=== PATIENT | male | born 1940 | race Caucasian/White ===

== ENCOUNTER 2017-11-20 15:35 | Emergency (ER) | payer MEDICARE, OTHER, SELFPAY ==
[2017-11-20 15:43] VITALS: BP 156/86; PULSE 101; RESP 20; TEMP 39.3; O2SAT 96
[2017-11-20] MEDS: SODIUM CHLORIDE 0.9% 1,000 ML 500 ML IV (16:09)
--- NOTE | 2017-11-20 16:09 | ED_ITS ---
HPI - Fever General Chief Complaint: Fever Stated Complaint: FEVER,5 DAYS SINCE LAST BM,THINKS BOWEL BLOCKAGE Time Seen by Provider: 11/20/17 16:08 Source: patient Mode of arrival: ambulatory Limitations: no limitations History of Present Illness HPI Narrative: 77-year-old male Ali history of hypertension here for evaluation of a couple days of fever and productive cough and malaise and abdominal pain. Patient states that he feels exactly the way he did when he was diagnosed with a ?bowel blockage? back in 2016. He states that he took Tylenol couple times over the past couple days which did not help any of his symptoms. He denies any shortness of breath or chest pain. Denies any urinary symptoms. States that he has had chronic sinusitis and chronic cough for years. He has seen ear nose and throat and has tried ?all of the medicines ?and has not had any improvement. No recent travel. Related Data Home Medications Medication Instructions Recorded Confirmed MULTIVITAMIN (Multivitamin 0 PO * [place] DOSE/FREQUENCY #0 08/30/06 -) aspirin 81 mg PO QDAY #0 08/30/06 amlodipine-olmesartan [Jace] PO QDAY #0 07/23/16 dexlansoprazole [Dexilant] PO BID #0 07/23/16 nebivolol [Bystolic] 60 mg PO BID #0 07/23/16 Previous Rx's Medication Instructions Recorded levofloxacin [Levaquin] 750 mg PO Q24H 5 Days #5 tab 11/20/17 Allergies Allergy/AdvReac Type Severity Reaction Status Date / Time Sulfa (Sulfonamide Allergy Unknown Verified 11/20/17 15:50 Antibiotics) [SULFA (SULFONAMIDE ANTIBIOTICS)] Review of Systems Constitutional Denies chills, Reports fatigue, Reports fever(s) and Denies headache(s) ENT Ears, Nose, Mouth, and Throat: Denies headache(s) Comments: Post nasal drip Cardiovascular Denies diaphoresis and Denies syncope Respiratory Denies chest congestion, Reports cough, Denies excessive phlegm production and Denies pain with cough Gastrointestinal Gastrointestinal: Denies diarrhea, Denies nausea and Denies vomiting Genitourinary Denies dysuria and Reports urinary frequency Integumentary/Breasts Denies lesions, Denies rash and Denies wounds Neurologic Denies syncope and Denies headache(s) Endocrine Reports fatigue Hematologic/Lymphatic Denies easy bleeding and Denies easy bruising PFSH Medical History HTN (hypertension) (Acute) Social History Smoking Status: Former smoker Exam Initial Vital Signs Initial Vital Signs: Vital Signs Temperature 102.7 F H 11/20/17 15:43 Pulse Rate 101 H 11/20/17 15:43 Respiratory Rate 20 11/20/17 15:43 Blood Pressure 156/86 H 11/20/17 15:43 Pulse Oximetry 96 11/20/17 15:43 Const General: cooperative, healthy appearing, comfortable, well developed, well groomed and No acute distress Orientation: alert, awake and oriented x3 Resp Effort & Inspection: normal respiratory effort Auscultation: clear to auscultation bilaterally, no crackles, no egophony, no rales and no rhonchi Cardio Rate: tachycardic Rhythm: regular rhythm Pulses: radial pulses present GI Inspection: non-distended Palpation: soft and tender (Epigastric) Auscultation: normal bowel sounds Skin Lesions: no lesions Rashes: no rashes Neuro General: alert, awake and oriented x3 Extrem General: normal to inspection Course Orders Ordered: ED Orders 11/20/17 16:00 Complete Blood Count AUTO DIFF Stat Comprehensive Metabolic Panel Stat Lactate (Lactic Acid) Stat Lipase Stat Partial Thromboplastin Time Stat Prothrombin Time INR Stat 11/20/17 16:03 Urinalysis and Microscopic Stat EKG-12 Lead Stat 11/20/17 16:17 XR chest 2V Stat 11/20/17 16:19 CT abdomen pelvis w con Stat 11/20/17 16:25 Blood Culture Stat Discontinued Medications Acetaminophen (Tylenol) 650 mg PO NOW ONE Stop: 11/20/17 16:10 Last Admin: 11/20/17 16:14 Dose: 650 mg Sodium Chloride (Normal Saline 0.9%) 1,000 mls @ 500 mls/hr IV BOLUS ONE Stop: 11/20/17 18:02 Last Infusion: 11/20/17 17:05 Dose: 0 mls/hr Admin: 11/20/17 16:09 Dose: 500 mls/hr Ibuprofen (Advil) 800 mg PO NOW ONE Stop: 11/20/17 16:11 Last Admin: 11/20/17 17:06 Dose: Not Given Vital Signs - 8 hr 11/20/17 15:43 11/20/17 16:42 11/20/17 17:50 Temperature 102.7 F H 102.7 F H 100.8 F H Pulse Rate 101 H 99 H Respiratory Rate 20 16 Blood Pressure 156/86 H Blood Pressure [Left Arm] 152/82 H Pulse Oximetry 96 96 MDM - Fever Lab Data Attestation: I reviewed the patient's lab results. Result diagrams: 11/20/17 16:00 11/20/17 16:00 Lab Results 11/20/17 11/20/17 11/20/17 Range/Units 16:00 16:00 16:00 WBC 19.0 H (4.5-11.0) X10^3/uL RBC 4.58 (4.5-5.9) X10^6/uL Hgb 13.2 L (13.5-17.5) g/dL Hct 39.7 L (41-53) % MCV 86.7 (80-100) fL MCH 28.8 (26-34) PG MCHC 33.2 (30-36) % RDW 15.6 H (11.6-14.8) % Plt Count 341 (150-400) X10^3/uL Neut % (Auto) 81.3 H (50-75) % Lymph % (Auto) 6.7 L (25-40) % Ector % (Auto) 11.5 (3-14) % Eos % (Auto) 0.1 L (2-4) % Baso % (Auto) 0.4 (0-2) % Neut # (Auto) 53800 H (8036-5876) /uL PT 14.5 H (10.1-12.7) SECONDS INR 1.3 (0.9-1.3) APTT 32 (26.4-36.2) SECONDS Sodium 135 L (137-145) mmol/L Potassium 4.5 (3.4-5.1) mmol/L Chloride 92 L (98-107) mmol/L Carbon Dioxide 26 (22-32) mmol/L BUN 15 (9-20) mg/dL Creatinine 1.10 (0.66-1.25) mg/dL Estimated GFR > 60.0 (>60) mL/min BUN/Creatinine Ratio 13.6 (6-22) Glucose 122 H (80-110) mg/dL Lactate (0.7-2.1) mmol/L Calcium 9.5 (8.4-10.2) mg/dL Total Bilirubin 0.9 (0.2-1.3) mg/dL AST 25 (17-59) IU/L ALT 21 (21-72) IU/L Alkaline Phosphatase 75 (38-126) U/L Total Protein 8.2 (6.3-8.2) g/dL Albumin 4.5 (3.5-5.0) g/dL Globulin 3.7 (1.7-4.1) g/dL Albumin/Globulin Ratio 1.2 (1.0-2.8) Lipase 19 L (23-300) U/L 11/20/17 Range/Units 16:00 WBC (4.5-11.0) X10^3/uL RBC (4.5-5.9) X10^6/uL Hgb (13.5-17.5) g/dL Hct (41-53) % MCV (80-100) fL MCH (26-34) PG MCHC (30-36) % RDW (11.6-14.8) % Plt Count (150-400) X10^3/uL Neut % (Auto) (50-75) % Lymph % (Auto) (25-40) % Ector % (Auto) (3-14) % Eos % (Auto) (2-4) % Baso % (Auto) (0-2) % Neut # (Auto) (5647-7776) /uL PT (10.1-12.7) SECONDS INR (0.9-1.3) APTT (26.4-36.2) SECONDS Sodium (137-145) mmol/L Potassium (3.4-5.1) mmol/L Chloride (98-107) mmol/L Carbon Dioxide (22-32) mmol/L BUN (9-20) mg/dL Creatinine (0.66-1.25) mg/dL Estimated GFR (>60) mL/min BUN/Creatinine Ratio (6-22) Glucose (80-110) mg/dL Lactate 1.6 (0.7-2.1) mmol/L Calcium (8.4-10.2) mg/dL Total Bilirubin (0.2-1.3) mg/dL AST (17-59) IU/L ALT (21-72) IU/L Alkaline Phosphatase (38-126) U/L Total Protein (6.3-8.2) g/dL Albumin (3.5-5.0) g/dL Globulin (1.7-4.1) g/dL Albumin/Globulin Ratio (1.0-2.8) Lipase (23-300) U/L Imaging Data Chest x-ray: Radiologist's impression: PROCEDURE: XR CHEST 2V INDICATIONS: Fever and productive cough TECHNIQUE: 2 views of the chest were acquired. COMPARISON: [facility], CHEST 2 VIEW, 12/04/2009, 9:17. [facility], CHEST 2 VIEW, 04/02/2008, 8:29. FINDINGS: Surgical changes and devices: None. Lungs and pleura: Right basilar infiltrate suspicious for pneumonia. No pleural effusions or pneumothorax. Mediastinum: Mediastinal contours are normal. Heart size is normal. Bones and chest wall: No suspicious bony abnormalities. Soft tissues appear unremarkable. IMPRESSION: Right basilar pneumonia. Dictated by: Marcelle Cornell M.D. on 11/20/2017 at 17:27 CT scan - abdomen: Radiologist's impression: PROCEDURE: CT ABDOMEN PELVIS W CON INDICATIONS: Upper abdominal pain the history of bowel obstruction. TECHNIQUE: After the administration of intravenous contrast, 5 mm thick sections acquired from the diaphragm to the symphysis. 5 mm coronal and sagittal reformats were acquired. For radiation dose reduction, the following was used: automated exposure control, adjustment of mA and/or kV according to patient size. COMPARISON: [facility], MR, ABDOMEN WITH AND WITHOUT CONTR, 06/12/2010, 10: 53. [facility], CT, ABDOMEN/PELVIS WITH CONTRAST, 06/05/2010, 8:35. [facility], CT, ABDOMEN WITH CONTRAST, 03/23/2013, 9:13. [facility], CT, ABDOMEN WITHOUT CONTRAST, 01/25/2014, 10:54. [facility], CT, PELVIS WITHOUT CONTRAST, 06/12/2015, 10: 18. FINDINGS: Image quality: Excellent. ABDOMEN: Lung bases: Right lower infiltrates consistent with pneumonia. A couple of nodular densities are noted in the right middle lobe measuring 8 mm and 7 mm, demonstrating groundglass halo. Heart size is normal. Tiny hiatal hernia. Solid organs: There is diffuse hepatic fatty infiltration. Multiple low density nodules are seen in liver, unchanged from the last exam, most likely hepatic cysts or hemangiomas. Liver is normal in size and enhancement. Gallbladder is unremarkable. Biliary system is non dilated. Pancreas enhances normally. Spleen is normal in size and enhancement. No adrenal nodules. Kidneys demonstrate normal size and enhancement, without hydronephrosis. Peritoneum and bowel: Bowel loops demonstrate normal wall thickness and caliber. No free fluid or air. Nodes and vessels: No retroperitoneal or mesenteric adenopathy by size criteria. Aorta and inferior vena cava are normal in size. Miscellaneous: Tiny umbilical hernia is present. PELVIS: Genitourinary: Bladder wall is concentrically thickened. Miscellaneous: No inguinal hernias or adenopathy. Bones: No suspicious bony lesions. No vertebral body compression fractures. IMPRESSION: 1. Concentric thickening of the bladder wall suggests cystitis. Recommend clinical correlation. 2. Right lower lobe infiltrates suspicious for pneumonia. Two right middle lobe nodules demonstrate groundglass halo, suggesting atypical infections such as aspergillosis. Recommend clinical correlation. A neoplastic process is not excluded. A followup chest CT is recommended after adequate treatment. 3. Stable low density nodules in liver, likely benign such as cysts. 4. Hepatic steatosis. 5. Enlarged prostate. Dictated by: Marcelle Cornell M.D. on 11/20/2017 at 17:29 Approved by: Marcelle Cornell M.D. on 11/20/2017 at 17:41 MDM Narrative Medical decision making narrative: Patient is not hypoxic. Not tachypneic. Does have a right lower lobe pneumonia both seen on the chest x-ray and also on the CT scan. No signs of bowel obstructions. Patient only has urinary frequency as a urinary symptom. Will place the patient on Levaquin which should take care of the pneumonia and also any potential cystitis. We did discuss the other findings on his CT scan to include the lung nodules. He was instructed that he needed to follow up with his primary doctor regarding this once the infection is cleared. Patient was unable to produce any sort of sputum sample for us. He denies any recent travel. Acknowledged the other findings from the CT scan and the concern for atypical pneumonia is however and his current presentation will treat the patient with Levaquin to see if this is not improving his symptoms. He was instructed he needs to follow up with his primary doctor. He was given return precautions. He expressed understanding and agreement with plan Discharge Plan Departure Patient Disposition: Home, Self-Care Clinical Impression: Pneumonia, Incidental lung nodule Instructions: DI for Pneumonia -- Adult Activity Restrictions/Additional Instructions: You do need to follow-up with her primary care doctor regarding the findings on the CT scan in the lung nodules that were found. Take the antibiotics as directed. Return to the emergency department for any new symptoms, worsening symptoms, fevers, inability to take her antibiotics, or any other concerning symptoms. Prescriptions: New levofloxacin [Levaquin] 750 mg tablet 750 mg PO Q24H 5 Days Qty: 5 RF: 0 No Action aspirin 81 MG tablet,delayed release (DR/EC) 81 mg PO QDAY Qty: 0 RF: 0 MULTIVITAMIN (Multivitamin -) PO * [place] DOSE/FREQUENCY Qty: 0 RF: 0 nebivolol [Bystolic] 20 MG tablet 60 mg PO BID Qty: 0 RF: 0 amlodipine-olmesartan [Jace] 5-20 mg Tablet PO QDAY Qty: 0 RF: 0 dexlansoprazole [Dexilant] 30 mg Capsule,Biphase Delayed Releas PO BID Qty: 0 RF: 0
[2017-11-20 16:11] LABS: Add Manual Diff / Slide Review NO; Basophils Percent Auto 0.4 % (0-2); Eosinophils Percent Auto 0.1 % (2-4); Hematocrit 39.7 % (41-53); Hemoglobin 13.2 g/dL (13.5-17.5); Lymphocytes Percent Auto 6.7 % (25-40); Mean Corpuscular HGB Conc 33.2 % (30-36); Mean Corpuscular Hemoglobin 28.8 PG (26-34); Mean Corpuscular Volume 86.7 fL (80-100); Monocytes Percent Auto 11.5 % (3-14); Neutrophils Absolute Auto 15400 /uL (3000-5900); Neutrophils Percent Auto 81.3 % (50-75); Platelet Count 341 X10^3/uL (150-400); Red Blood Cell Count 4.58 X10^6/uL (4.5-5.9); Red Cell Distribution Width 15.6 % (11.6-14.8)
[2017-11-20] MEDS: ACETAMINOPHEN 325 MG TABLET 650 MG PO (16:14)
--- NOTE | 2017-11-20 16:17 | DI.RAD.S_ITS ---
PROCEDURE: XR CHEST 2V INDICATIONS: Fever and productive cough TECHNIQUE: 2 views of the chest were acquired. COMPARISON: [facility], CHEST 2 VIEW, 12/04/2009, 9:17. [facility], CHEST 2 VIEW, 04/02/2008, 8:29. FINDINGS: Surgical changes and devices: None. Lungs and pleura: Right basilar infiltrate suspicious for pneumonia. No pleural effusions or pneumothorax. Mediastinum: Mediastinal contours are normal. Heart size is normal. Bones and chest wall: No suspicious bony abnormalities. Soft tissues appear unremarkable. IMPRESSION: Right basilar pneumonia. Dictated by: Marcelle Cornell M.D. on 11/20/2017 at 17:27 Approved by: Marcelle Cornell M.D. on 11/20/2017 at 17:29
--- NOTE | 2017-11-20 16:19 | DI.CT.S_ITS ---
PROCEDURE: CT ABDOMEN PELVIS W CON INDICATIONS: Upper abdominal pain the history of bowel obstruction. TECHNIQUE: After the administration of intravenous contrast, 5 mm thick sections acquired from the diaphragm to the symphysis. 5 mm coronal and sagittal reformats were acquired. For radiation dose reduction, the following was used: automated exposure control, adjustment of mA and/or kV according to patient size. COMPARISON: [facility], MR, ABDOMEN WITH AND WITHOUT CONTR, 06/12/2010, 10:53. [facility], CT, ABDOMEN/PELVIS WITH CONTRAST, 06/05/2010, 8:35. [facility], CT, ABDOMEN WITH CONTRAST, 03/23/2013, 9:13. [facility], CT, ABDOMEN WITHOUT CONTRAST, 01/25/2014, 10:54. [facility], CT, PELVIS WITHOUT CONTRAST, 06/12/2015, 10:18. FINDINGS: Image quality: Excellent. ABDOMEN: Lung bases: Right lower infiltrates consistent with pneumonia. A couple of nodular densities are noted in the right middle lobe measuring 8 mm and 7 mm, demonstrating groundglass halo. Heart size is normal. Tiny hiatal hernia. Solid organs: There is diffuse hepatic fatty infiltration. Multiple low density nodules are seen in liver, unchanged from the last exam, most likely hepatic cysts or hemangiomas. Liver is normal in size and enhancement. Gallbladder is unremarkable. Biliary system is non dilated. Pancreas enhances normally. Spleen is normal in size and enhancement. No adrenal nodules. Kidneys demonstrate normal size and enhancement, without hydronephrosis. Peritoneum and bowel: Bowel loops demonstrate normal wall thickness and caliber. No free fluid or air. Nodes and vessels: No retroperitoneal or mesenteric adenopathy by size criteria. Aorta and inferior vena cava are normal in size. Miscellaneous: Tiny umbilical hernia is present. PELVIS: Genitourinary: Bladder wall is concentrically thickened. Miscellaneous: No inguinal hernias or adenopathy. Bones: No suspicious bony lesions. No vertebral body compression fractures. IMPRESSION: 1. Concentric thickening of the bladder wall suggests cystitis. Recommend clinical correlation. 2. Right lower lobe infiltrates suspicious for pneumonia. Two right middle lobe nodules demonstrate groundglass halo, suggesting atypical infections such as aspergillosis. Recommend clinical correlation. A neoplastic process is not excluded. A followup chest CT is recommended after adequate treatment. 3. Stable low density nodules in liver, likely benign such as cysts. 4. Hepatic steatosis. 5. Enlarged prostate. Dictated by: Marcelle Cornell M.D. on 11/20/2017 at 17:29 Approved by: Marcelle Cornell M.D. on 11/20/2017 at 17:41
[2017-11-20 16:22] LABS: INR 1.3 (0.9-1.3); Prothrombin Time 14.5 SECONDS (10.1-12.7)
[2017-11-20 16:23] LABS: Alanine Aminotransferase 21 IU/L (21-72); Albumin 4.5 g/dL (3.5-5.0); Albumin Globulin Ratio 1.2 (1.0-2.8); Alkaline Phosphatase 75 U/L (38-126); Aspartate Aminotransferase 25 IU/L (17-59); BUN Creatinine Ratio 13.6 (6-22); Bilirubin Total 0.9 mg/dL (0.2-1.3); Blood Urea Nitrogen 15 mg/dL (9-20); Calcium 9.5 mg/dL (8.4-10.2); Carbon Dioxide 26 mmol/L (22-32); Chloride 92 mmol/L (98-107); Estimated Glomerular Filt Rate > 60.0 mL/min (>60); Globulin 3.7 g/dL (1.7-4.1); Glucose 122 mg/dL (80-110); HEMOLYSIS < 15 (0-50); Lipase 19 U/L (23-300); Potassium 4.5 mmol/L (3.4-5.1); Sodium 135 mmol/L (137-145); Total Protein 8.2 g/dL (6.3-8.2)
[2017-11-20 16:24] LABS: Lactate (Lactic Acid) 1.6 mmol/L (0.7-2.1)
[2017-11-20 16:25] LABS: PTT Partial Thromboplastin Tim 32 SECONDS (26.4-36.2)
[2017-11-20 16:42] VITALS: BP 152/82; PULSE 99; RESP 16; TEMP 39.3; O2SAT 96
[2017-11-20 17:50] VITALS: TEMP 38.2
[2017-11-20 18:22] VITALS: BP 124/79; PULSE 86; RESP 18; TEMP 37.4; O2SAT 96
[2017-11-20] MEDS: levoFLOXacin 250 MG TABLET 750 MG PO (18:33)
== END 2017-11-20 18:40 | disposition home or self-care (01) ==
PROVIDERS: Emergency Provider Emergency Medicine; Family Provider Family Medicine; PCP Family Medicine
DX: J18.9 Pneumonia, unspecified organism (principal); R91.1 Solitary pulmonary nodule; Z87.891 Personal history of nicotine dependence
CPT/HCPCS: 36591; 71046; 74177; 80053; 83605; 83690; 85025; 85610; 85730; 87040; 96360; 99283; 99285; Q9967

== ENCOUNTER → 2017-12-05 16:15 | Outpatient (CLI) | payer MEDICARE, OTHER, SELFPAY ==
--- NOTE | 2017-12-05 16:18 | DI.RAD.S_ITS ---
PROCEDURE: XR CHEST 2V INDICATIONS: PNEUMONIA TECHNIQUE: 2 views of the chest were acquired. COMPARISON: [facility], CR, XR CHEST 2V, 11/20/2017, 16:46. FINDINGS: Surgical changes and devices: None. Lungs and pleura: No pleural effusions or pneumothorax. Ill-defined infiltrates in the right middle and lower lobes appear more prominent. Consolidation has developed in the left parahilar region Mediastinum: Mediastinal contours are normal. Heart size is normal. The right pulmonary artery appears prominent. Aortic calcifications and tortuosity. Bones and chest wall: No suspicious bony abnormalities. Soft tissues appear unremarkable. IMPRESSION: Interval worsening of right-sided infiltrates and interval development of left parahilar density. Suggest contrast enhanced CT chest for further evaluation. Dictated by: Reza Buchanan M.D. on 12/05/2017 at 16:31 Approved by: Reza Buchanan M.D. on 12/05/2017 at 16:34
== END ==
PROVIDERS: Family Provider Family Medicine; PCP Family Medicine; Visit Provider Family Medicine
DX: J18.9 Pneumonia, unspecified organism (principal)
CPT/HCPCS: 71046

== ENCOUNTER → 2017-12-08 10:02 | Outpatient (CLI) | payer MEDICARE, OTHER, SELFPAY ==
--- NOTE | 2017-12-08 | DI.CT.S_ITS ---
PROCEDURE: CT CHEST W CON INDICATIONS: Pneumonia on xray TECHNIQUE: After the administration of intravenous contrast, 5 mm thick sections acquired from the pulmonary apices to the posterior costophrenic angles. 7 mm thick coronal and sagittal MIP reformats were acquired. For radiation dose reduction, the following was used: automated exposure control, adjustment of mA and/or kV according to patient size. COMPARISON: [facility], CR, XR CHEST 2V, 11/20/2017, 16:46. [facility], CT, CT ABDOMEN PELVIS W CON, 11/20/2017, 16:57. [facility], CR, XR CHEST 2V, 12/05/2017, 15:56. FINDINGS: Image quality: Excellent. Lungs and pleura: Multiple bilateral areas of consolidation are seen for example in the left upper lobe image 27, and right upper lobe image 32. There also areas of bilateral ill-defined consolidation present within the right middle lobe, lung bases with spiculated ill-defined margins, and nodular appearance in the right middle lobe image 46 measured 1.3 cm. No pleural effusions or pneumothorax. Central and peripheral airways are patent and normal in caliber. Mediastinum: Heart size is normal. Coronary artery calcifications are noted. No pericardial effusion. No mediastinal or hilar adenopathy by size criteria. Thoracic aorta and central pulmonary arteries are normal in size. Esophagus is normal in caliber. No hiatal hernia. Bones and chest wall: No suspicious bony lesions. No vertebral body compression fractures. No axillary or supraclavicular adenopathy by size criteria. Thyroid gland negative. Abdomen: Redemonstration of low attenuation foci within the dome of the liver on image 53 and in the left lobe, image 56, and multiple smaller foci in the inferior tip of the liver. There is hepatic steatosis. IMPRESSION: Interval progression in bilateral lower lobe areas of consolidation as detailed above since 11/20/17 probably multifocal pneumonia and/or aspiration although recommend close clinical correlation and followup CT chest after treatment to exclude underlying pulmonary nodule, especially given the nodular appearance seen in the right middle lobe. Additional bilateral upper lobe areas of consolidation/pneumonia which are also new/progressed since 11/20/17 accounting for the radiographic changes on comparison studies. (This area was not included on the prior comparison CT) Redemonstration of multiple hypodense foci throughout the liver, indeterminate although grossly unchanged Dictated by: Montrell Toure M.D. on 12/08/2017 at 10:44 Approved by: Montrell Toure M.D. on 12/08/2017 at 10:51
== END ==
PROVIDERS: Family Provider Family Medicine; PCP Family Medicine; Visit Provider Family Medicine
DX: J18.9 Pneumonia, unspecified organism (principal)
CPT/HCPCS: 71260; Q9967

== ENCOUNTER → 2017-12-29 15:03 | Outpatient (CLI) | payer MEDICARE, OTHER, SELFPAY ==
--- NOTE | 2017-12-29 15:07 | DI.RAD.S_ITS ---
PROCEDURE: XR CHEST 2V INDICATIONS: PNEUMONIA TECHNIQUE: 2 views of the chest were acquired. COMPARISON: [facility], CT, CT CHEST W CON, 12/08/2017, 10:07. [facility], CR, XR CHEST 2V, 11/20/2017, 16:46. [facility], CR, XR CHEST 2V, 12/05/2017, 15:56. FINDINGS: Surgical changes and devices: None. Lungs and pleura: Poorly defined opacity is seen involving the left midlung medially. This is clearly improved compared to 12/05/17 examination. Minimal right lower lung infiltrates are seen. No new infiltrates are seen. No pneumothorax or pleural effusions are seen. Mediastinum: Mediastinal contours are normal. Heart size is normal. Bones and chest wall: No suspicious bony abnormalities. Age-appropriate bony degenerative changes are seen. Soft tissues appear unremarkable. IMPRESSION: Improved left midlung perihilar density. Minimal right lower lung infiltrates are again seen. Followup chest radiographs are recommended to complete resolution. If this abnormality does not completely resolve on plain film, then a chest CT with contrast would be recommended to evaluate for a potential underlying mass. Dictated by: Ministerio Camejo M.D. on 12/29/2017 at 15:18 Approved by: Ministerio Camejo M.D. on 12/29/2017 at 15:19
== END ==
PROVIDERS: Family Provider Family Medicine; PCP Family Medicine; Visit Provider Family Medicine
DX: J18.9 Pneumonia, unspecified organism (principal)
CPT/HCPCS: 71046

== ENCOUNTER → 2018-01-12 14:15 | Outpatient (CLI) | payer MEDICARE, OTHER, SELFPAY ==
--- NOTE | 2018-01-12 | DI.RAD.S_ITS ---
PROCEDURE: XR CHEST 2V INDICATIONS: PNEUMONIA TECHNIQUE: 2 views of the chest were acquired. COMPARISON: [facility], CT, CT CHEST W CON, 12/08/2017, 10:07. [facility], CR, XR CHEST 2V, 12/05/2017, 15:56. [facility], CR, XR CHEST 2V, 12/29/2017, 14:49. FINDINGS: Surgical changes and devices: None. Lungs and pleura: No pleural effusions or pneumothorax. Persistent left hilar fullness with peripheral airspace opacity which has not significantly changed from the most recent chest radiograph dated 12/29/17. Airspace opacity involving the right lower lobe has resolved. Mediastinum: Mediastinal contours are normal. Heart size is normal. Bones and chest wall: No suspicious bony abnormalities. Soft tissues appear unremarkable. IMPRESSION: Persistent left hilar fullness and peripheral opacity no significant change from the most recent chest radiograph. Continued radiographic surveillance to resolution is recommended and if the densities persist, recommend repeat chest CT scan exclude underlying central neoplasm. Dictated by: Yves CABRERA Interpreted: Dian Patel MD on 01/12/2018 at 14:57 Approved by: Dian Patel M.D. on 01/12/2018 at 16:22
== END ==
PROVIDERS: Family Provider Family Medicine; PCP Family Medicine; Visit Provider Family Medicine
DX: J18.9 Pneumonia, unspecified organism (principal)
CPT/HCPCS: 71046

== ENCOUNTER → 2018-01-19 11:35 | Outpatient (CLI) | payer MEDICARE, OTHER, SELFPAY ==
--- NOTE | 2018-01-19 | DI.CT.S_ITS ---
PROCEDURE: CT CHEST W CON INDICATIONS: PNEUMONIA right lower lobe TECHNIQUE: After the administration of intravenous contrast, 5 mm thick sections acquired from the pulmonary apices to the posterior costophrenic angles. 7 mm thick coronal and sagittal MIP reformats were acquired. For radiation dose reduction, the following was used: automated exposure control, adjustment of mA and/or kV according to patient size. COMPARISON: [facility], CT, CT CHEST W CON, 12/08/2017, 10:07. [facility], CR, XR CHEST 2V, 12/29/2017, 14:49. [facility], CR, XR CHEST 2V, 01/12/2018, 13:59. FINDINGS: Image quality: Excellent. Lungs and pleura: Bilateral multifocal infiltrates including areas of spiculated consolidation and nodularity as previously described all show marked interval improvement in near complete resolution, leaving mild groundglass opacities and an 8mm nodule in the posterior sulcus of the right lower lobe, image 53. No pleural effusions or pneumothorax. Central and peripheral airways are patent and normal in caliber. Mediastinum: Heart size is normal. Mild coronary artery and aortic calcifications. No pericardial effusion. No mediastinal or hilar adenopathy by size criteria. Thoracic aorta and central pulmonary arteries are normal in size. Esophagus is normal in caliber. No hiatal hernia. Bones and chest wall: No suspicious bony lesions. No vertebral body compression fractures. No axillary or supraclavicular adenopathy by size criteria. Thyroid gland appears normal. Abdomen: Visualized upper abdominal solid organs appear normal. Liver shows homogeneous decreased attenuation. Upper abdominal bowel loops are normal in caliber. Hepatic hypodensities remain unchanged. IMPRESSION: 1. Marked improvement in multilobar pneumonia bilaterally, scattered groundglass opacities remaining. An 8mm right lower lobe pulmonary nodule is likely atelectatic but indeterminate. Followup plain films to complete resolution is advised. 2. Hepatic steatosis and hypodensities remain unchanged. Dictated by: Reza Buchanan M.D. on 01/19/2018 at 12:07 Approved by: Reza Buchanan M.D. on 01/19/2018 at 12:23
== END ==
PROVIDERS: Family Provider Family Medicine; PCP Family Medicine; Visit Provider Family Medicine
DX: J18.9 Pneumonia, unspecified organism (principal); R91.1 Solitary pulmonary nodule; K76.0 Fatty (change of) liver, not elsewhere classified
CPT/HCPCS: 71260; Q9967

== ENCOUNTER → 2018-02-07 12:52 | Outpatient (CLI) | payer MEDICARE, OTHER, SELFPAY ==
--- NOTE | 2018-02-07 | DI.RAD.S_ITS ---
PROCEDURE: XR CHEST 2V INDICATIONS: Other nonspecific abnormal finding of lung field TECHNIQUE: 2 views of the chest were acquired. COMPARISON: [facility], CT, CT CHEST W CON, 01/19/2018, 11:33. [facility], CT, CT CHEST W CON, 12/08/2017, 10:07. [facility], CR, XR CHEST 2V, 12/29/2017, 14:49. [facility], CR, XR CHEST 2V, 01/12/2018, 13:59. FINDINGS: Surgical changes and devices: None. Lungs and pleura: Left suprahilar hilar paucity has decreased compared to last chest x-ray. No pleural effusions or pneumothorax. Mediastinum: Mediastinal contours are normal. Heart size is normal. Bones and chest wall: No suspicious bony abnormalities. Soft tissues appear unremarkable. IMPRESSION: Decreasing suprahilar opacity. Dictated by: Marcelle Cornell M.D. on 02/07/2018 at 15:35 Approved by: Marcelle Cornell M.D. on 02/07/2018 at 15:37
== END ==
PROVIDERS: Family Provider Family Medicine; PCP Family Medicine; Visit Provider Family Medicine
DX: R91.8 Other nonspecific abnormal finding of lung field (principal)
CPT/HCPCS: 71046

== ENCOUNTER → 2018-02-10 09:48 | Outpatient (CLI) | payer MEDICARE, OTHER, SELFPAY ==
--- NOTE | 2018-02-10 | DI.CT.S_ITS ---
PROCEDURE: CT SINUS SCREEN WO CON INDICATIONS: SINUSITIS TECHNIQUE: Noncontrast 3.0 mm axial images acquired from the frontal sinuses to the mid-sella, with coronal and sagittal reformats. For radiation dose reduction, the following was used: automated exposure control, adjustment of mA and/or kV according to patient size. COMPARISON: [facility], CT, SINUS SCREEN, 11/24/2010, 10:23. [facility], CT, SINUS SCREEN, 08/19/2010, 8:48. FINDINGS: Image quality: Excellent. Sinuses: There is mucous retention cyst versus polyp in the right maxillary sinus. There is overall appearance of minimal to mild scattered mucosal thickening, overall less prominent when compared to prior exam. Ostiomeatal Complexes: Ostiomeatal complexes are patent. There is narrowing bilaterally secondary to mucosal thickening. Miscellaneous: Visualized intra-orbital contents are normal. Paradoxical middle turbinates are present. There is hypertrophy of the left inferior nasal turbinate. Mild to moderate rightward nasal septal deviation. IMPRESSION: 1. Minimal to mild scattered pansinus disease as above. 2. Mildly narrowed ostiomeatal complexes secondary to mucosal thickening, with secondary effect of paradoxical turbinates and nasal septal deviation.. Dictated by: Dian Patel M.D. on 02/10/2018 at 9:55 Approved by: Dian Patel M.D. on 02/10/2018 at 10:16
== END ==
PROVIDERS: Family Provider Family Medicine; PCP Family Medicine; Visit Provider Otolaryngology
DX: J32.4 Chronic pansinusitis (principal); J34.2 Deviated nasal septum
CPT/HCPCS: 70486

== ENCOUNTER → 2018-07-25 12:40 | Outpatient (CLI) | payer MEDICARE, OTHER, SELFPAY ==
--- NOTE | 2018-07-25 | DI.RAD.S_ITS ---
PROCEDURE: XR FINGER LT MIN 2V INDICATIONS: MIDDLE FINGER INJURY TECHNIQUE: AP hand, 2 views of the third finger(s) acquired. COMPARISON: None. FINDINGS: Bones: There is a nondisplaced fracture involving the tuft of the third distal phalanx. No suspicious bony lesions. Soft tissues: No suspicious soft tissue calcifications. IMPRESSION: Nondisplaced fracture of the tuft of the third distal phalanx. Dictated by: Marcelle Cornell M.D. on 07/25/2018 at 14:34 Approved by: Marcelle Cornell M.D. on 07/25/2018 at 14:35
== END ==
PROVIDERS: Family Provider Family Medicine; PCP Family Medicine; Visit Provider Family Medicine
DX: M79.645 Pain in left finger(s) (principal); S62.663A Nondisplaced fracture of distal phalanx of left middle finger, initial encounter for closed fracture
CPT/HCPCS: 73140

== ENCOUNTER 2019-05-03 07:22 | Day surgery (SDC) | payer MEDICARE, OTHER, SELFPAY ==
--- NOTE | 2019-05-03 | PATH_ITS ---
[facility] Accession Number: [id number] . 01 Material submitted: . PART A: gastrointestinal site - RANDOM STOMACH BIOPSIES PART B: cecum - CECAL POLYP BIOPSY PART C: colon - COLON POLYP AT 20 CM . 02 Diagnosis: A. Random Stomach, Biopsies: Gastric oxyntic mucosa with prominent dilatation of pits; please see comment. No evidence of Helicobacter organisms on H/E stain. Negative for intestinal metaplasia. Negative for dysplasia or malignancy. . B. Cecal Polyp, Biopsy: Tubular adenoma. . C. Colon at 20 cm, Polyp: Hyperplastic polyp. [facility] 05/04/2019 1036 Local . 02 Comment: The findings in the random gastic biopsies are sugestive of PPI effect or incidental sampling of fundic gland polyps. Correlation with the clinical history and endoscopic appearnce are required. . 02 Electronically signed: . Charles Hui MD, PhD, Pathologist NPI- [id number] . 01 Gross description: . Part A: RANDOM STOMACH BIOPSIES: Received in formalin are multiple fragment(s) of segal, soft tissue measuring 0.1 x 0.1 x 0.1 cm to 0.3 x 0.2 x 0.2 cm submitted entirely in 1 cassette(s) Part B: CECAL POLYP BIOPSY: Received in formalin are multiple fragment(s) of segal, soft tissue measuring 0.1 x 0.1 x 0.1 cm to 0.3 x 0.2 x 0.2 cm submitted entirely in 1 cassette(s) Part C: COLON POLYP AT 20 CM: Received in formalin are 4 fragment(s) of segal, soft tissue measuring 0.1 x 0.1 x 0.1 cm to 0.4 x 0.2 x 0.2 cm submitted entirely in 1 cassette(s) /[facility] [place] [facility] 05/03/2019 [facility]8 Local . 02 Pathologist provided ICD-10: D12.0, K63.5, K21.9 . 02 CPT . 104192, 785180, [id number] Performed at: 01 [facility] [address] [address], [place], [place] [id number] MD Jabari Mae MD Phone: [phone] Performed at: [facility] [id number] [place], [place] [id number] MD Asiya Reyes MD Phone: [phone]
[2019-05-03 07:47] VITALS: BP 121/74; PULSE 59; RESP 20; TEMP 36.2; BMI 23.8
[2019-05-03] MEDS: SODIUM CHLORIDE 0.9% 1,000 ML 200 ML IV (08:15)
--- NOTE | 2019-05-03 08:34 | PM.HP.1 ---
History of Present Illness History of Present Illness Date Patient Seen: 05/03/19 Time Patient Seen: 08:34 Chief complaint: [id number] Narrative: The patient is a gentleman here for screening colonoscopy. His last exam was 10 years ago. No history of polyps and no family history of colon cancer. In addition the patient has chronic longstanding reflux disease. I was asked to do an EGD. Patient History Medical History HTN (hypertension) (Acute) Family & Social History Social History: household members spouse Tobacco & Substance use: Smoking Status Former smoker alcohol intake frequency a few times a week Substance Use Type does not use Meds Home Medications and Allergies Home Medications Medication Instructions Recorded Confirmed Type MULTIVITAMIN (Multivitamin 0 PO USEASDIRECTD #0 08/30/06 History -) aspirin 81 mg PO QDAY #0 08/30/06 05/03/19 History Bystolic 60 mg PO BID #0 07/23/16 05/03/19 History Dexilant 60 mg PO BID #0 07/23/16 05/03/19 History amlodipine-olmesartan [Jace] PO QDAY #0 07/23/16 History amlodipine-olmesartan 400 tab PO DAILY 05/03/19 05/03/19 History meprobamate 400 mg PO TID PRN 05/03/19 05/03/19 History Allergies Allergy/AdvReac Type Severity Reaction Status Date / Time Sulfa (Sulfonamide Allergy Unknown Verified 05/03/19 07:55 Antibiotics) [SULFA (SULFONAMIDE ANTIBIOTICS)] Review of Systems Review of Systems ROS Unobtainable: All systems reviewed & are unremarkable except as noted in HPI and below Exam Vital Signs (past 8 hours): - 05/03/19 07:47 Temperature 97.1 F L Pulse Rate 59 L Respiratory Rate 20 Blood Pressure 121/74 Oxygen Delivery Method Room Air Oxygen Flow Rate 100 Narrative Exam Narrative: Pleasant cooperative patient no apparent distress. Lungs are clear to auscultation. No rales or rhonchi. Heart regular rate and rhythm no murmur gallop. Abdomen is soft nontender without mass. No obvious hernias. Patient is alert and oriented x3. Assessment & Plan Assessment & Plan narrative: The patient for a screening colonoscopy. I have discussed the procedure with them. Risks of bleeding, perforation which would necessitate major operation, failure to find remove all lesions, the potential tattoo were all discussed. All questions were answered. They wished to proceed.
--- NOTE | 2019-05-03 08:35 | PM.PREOP ---
Pre-operative Note Interval Note History & Physical reviewed/Exam performed by Physician: Yes Changes to H&P: No ASA Class (for procedural sedation): II
[2019-05-03] MEDS: LIDOCAINE 4% SOLN 50 ML 20 ML TOP (08:40)
[2019-05-03] MEDS: MIDAZOLAM 5 MG/5 ML VIAL IV (08:41)
[2019-05-03] MEDS: fentaNYL 250 MCG/5 ML INJ IV (08:41)
--- NOTE | 2019-05-03 09:32 | PM.OP.ENDO ---
Operative Date/Time/Diagnoses Date of procedure: 05/03/19 Time of procedure: 09:33 Pre-op diagnosis: Patient is said to be anemic. Due for a screening colonoscopy. Last exam 10 years ago. Chronic reflux disease Post-op diagnosis: same (Stomach is carpeted with what appears to be gastric fundic polyps. No evidence of Quijano's esophagus. Small possible polypoid lesions at the cecum and at 20 cm from the anal verge) Procedure & Clinicians Study performed: EGD with cold biopsy colonoscopy with cold biopsy Same procedure as scheduled: Yes Indications: Due for screening colonoscopy. Chronic reflux disease. History of anemia Surgeon: Guy Griffin Procedure Notes SCOAP/Timeout: Performed Procedure in detail: The patient had topical anesthetic applied to oropharynx. She was placed in left lateral decubitus position and underwent IV sedation directed by the surgeon consisting of fentanyl and Versed. A bite block was inserted and the scope was advanced through it into the esophagus. The esophagus was unremarkable. GE junction was noted at 44 cm from the incisors. The stomach insufflated well. There were a carpet of polypoid lesions that appeared to be benign gastric fundic polyps seen in the body and at the incisura. The antrum was spared. The pyloric channel was narrowed but patent. The duodenum was unremarkable to the 4th part. The scope was brought back into the stomach and retroflexed. The proximal stomach was also carpeted with polyps. Random biopsies were taken in the stomach.. The scope was straightened and brought out through the esophagus again. No other lesions were seen. There was no evidence of any inflammation at the GE junction. There was no evidence of Quijano's esophagus. The scope was removed and the patient tolerated the procedure well. The patient was reposition. He was given additional sedation of fentanyl and Versed. Digital exam was remarkable for a rather large prostate without dominant mass. The scope was inserted and advanced through the rectum into the sigmoid, descending, transverse, and ascending colon. A stiffener was inserted and pressure applied in order to make our way into the cecum. The cecum was reached identified by the ileocecal valve and the appendiceal opening. The ileocecal valve was briefly cannulated. The terminal ileum was normal in appearance. There was a small flat lesion that may have been from trauma but I decided to remove it with cold biopsy forceps. This is located in the cecum. The scope was gradually brought out. One other possible Polyp was found at 20 cm and it was removed with biopsy forceps. The scope ultimately was attempted to be retroflexed in the rectum. I was unsuccessful in doing so. I slowly came through the anal verge. The appearance was remarkable for hemorrhoids just inside the anal verge 1 of which was mildly inflamed.. The scope was removed and the patient tolerated the procedure well. The prep was good. Scope withdrawal time: 9 minutes(11 total) Sedation minutes: 45 Findings: internal hemorrhoids and polyp (Gastric and colonic) Specimen(s): other (Gastric biopsies. Two possible polyps of the colon.) Complications: none Post-procedure Recommendations: Colonscopy in 5 years (Unless these polyps are not neoplastic. If they are not than patient does not need a repeat screening exam.) Follow up: as needed Disposition: PACU
[2019-05-03 09:42] VITALS: BP 110/73; PULSE 62; RESP 10; TEMP 36.8; O2SAT 98
[2019-05-03 09:47] VITALS: BP 107/76; PULSE 64; RESP 12; O2SAT 96
[2019-05-03 09:51] VITALS: BP 113/73; PULSE 57; RESP 11; O2SAT 96
[2019-05-03 10:05] VITALS: BP 121/74; PULSE 67; RESP 20; TEMP 35.6; O2SAT 99
== END 2019-05-03 10:12 | disposition home or self-care (01) ==
PROVIDERS: Family Provider Family Medicine; PCP Family Medicine; Visit Provider Specialist
PROC: 0DJ08ZZ Inspection of Upper Intestinal Tract, Via Natural or Artificial Opening Endoscopic (ICD-10-PCS; CPT 43235; principal; 2019-05-03 08:45)
PROC: 0DJD8ZZ Inspection of Lower Intestinal Tract, Via Natural or Artificial Opening Endoscopic (ICD-10-PCS; CPT 45378; 2019-05-03 08:45)
DX: Z12.11 Encounter for screening for malignant neoplasm of colon (principal); K21.9 Gastro-esophageal reflux disease without esophagitis; K64.8 Other hemorrhoids; D12.0 Benign neoplasm of cecum
CPT/HCPCS: 45380; 43239; 99152; 99153; J2250; J3010

== ENCOUNTER 2019-08-12 14:05 | Emergency (ER) | payer MEDICARE, OTHER, SELFPAY ==
[2019-08-12 14:19] VITALS: BP 135/74; PULSE 80; RESP 16; TEMP 36.6; O2SAT 98; BMI 24.3
--- NOTE | 2019-08-12 16:00 | DI.CT.S_ITS ---
PROCEDURE: CT ABDOMEN PELVIS W CON INDICATIONS: severe abdominal pain, tender epigastrium and RUQ TECHNIQUE: After the administration of intravenous contrast, 5 mm thick sections acquired from the diaphragm to the symphysis. 5 mm coronal and sagittal reformats were acquired. For radiation dose reduction, the following was used: automated exposure control, adjustment of mA and/or kV according to patient size. COMPARISON: [facility], CT, ABDOMEN WITHOUT CONTRAST, 01/25/2014, 10:54. [facility], CT, PELVIS WITHOUT CONTRAST, 06/12/2015, 10:18. [facility], CT, CT ABDOMEN PELVIS W CON, 11/20/2017, 16:57. FINDINGS: Image quality: Excellent. ABDOMEN: Lung bases: Lung bases are clear. Heart size is normal. Solid organs: Liver is normal in size and enhancement. Stable apparent liver cysts are seen. Gallbladder wall does not appear thickened. Biliary system is non dilated. Pancreas enhances normally. Spleen is normal in size and enhancement. No adrenal nodules. Kidneys demonstrate normal size and enhancement, without hydronephrosis. Peritoneum and bowel: Within the proximal stomach, there is hyperdense material seen, most likely related to dense food, which is layering dependently. No frankly dilated loops of small bowel are seen. Liquid stool is seen within the colon. No free air or significant free fluid can be seen. Incidental note is made of a normal-appearing appendix. Nodes and vessels: No retroperitoneal or mesenteric adenopathy by size criteria. Aorta and inferior vena cava are normal in size. Atherosclerotic calcification is noted. Miscellaneous: A mild periumbilical hernia is seen, containing fat. PELVIS: Genitourinary: Bladder wall thickness is normal. Miscellaneous: No inguinal adenopathy. Bilateral fat-containing inguinal hernias are seen, left larger than right. Bones: No suspicious bony lesions. No vertebral body compression fractures. IMPRESSION: The findings of the bowel are most consistent with enteritis and colitis, with liquid stool noted within the colon. Please correlate with diarrhea. Likely dependently layering hyperdense food material within the proximal stomach. Please correlate with patient history. If clinically appropriate, please consider upper endoscopy. Incidental note is made of: Apparent liver cysts Fat-containing periumbilical hernia Normal appendix Bilateral fat-containing inguinal hernias Dictated by: Ministerio Camejo M.D. on 08/12/2019 at 16:30 Approved by: Ministerio Camejo M.D. on 08/12/2019 at 16:35
--- NOTE | 2019-08-12 16:04 | ED_ITS ---
HPI - Abdominal Pain General Chief Complaint: Abdominal Pain Stated Complaint: Believes colon is blocked Time Seen by Provider: 08/12/19 15:44 History of Present Illness HPI narrative: HPI: Patient is a 79-year-old male who presented to the emergency department with persistent abdominal pain with nausea and ears to vomit secondary to a questionable partial bowel obstruction. The patient states that he has had no surgery on his belly. His had no appendectomy or cholecystectomy. His last bowel movement was this morning. It was normal without melena or hematochezia. He has had no recent diarrhea. He states that he has had partial bowel obstructions before. He gets admitted to the hospital with IV fluid hydration pain medicine and has had no NG tube inserted. This current episode of pain and discomfort started 2 nights ago. Last night the pain became very severe and persisted this morning that he came into the emergency department today. Patient states that he had no bowel movement yesterday. He denies a history of diverticulitis, irritable bowel syndrome, Crohn's disease, ulcerative colitis, or pancreatitis. He denies being a diabetic but admits to hypertension that is controlled by medications. He denies any congestive heart failure myocardial infarction COPD or asthma. He quit smoking cigarettes over 30 years ago. He drinks alcohol daily in the form of red wine and or 1 whiskey. He currently describes his pain as 5/10 in intensity and is a dull achy pain that becomes sharp and crampy. He denies any fever chills sweats headache sore throat nasal congestion cough shortness of breath chest pain palpitations dizziness or any urinary symptoms. Related Data Home Medications Medication Instructions Recorded Confirmed MULTIVITAMIN (Multivitamin 0 PO USEASDIRECTD #0 08/30/06 -) aspirin 81 mg PO QDAY #0 08/30/06 05/03/19 Bystolic 5 mg PO BID #0 07/23/16 05/03/19 Dexilant 60 mg PO DAILY #0 07/23/16 05/03/19 amlodipine-olmesartan [Jace] 5 tab PO QDAY #0 07/23/16 meprobamate 400 mg PO TID PRN 05/03/19 05/03/19 tadalafil 5 mg PO DAILY 08/12/19 08/12/19 Previous Rx's Medication Instructions Recorded ciprofloxacin HCl [Cipro] 500 mg PO BID #14 tab 08/12/19 dicyclomine 20 mg PO TID #15 tab 08/12/19 metronidazole [Flagyl] 500 mg PO BID #14 tab 08/12/19 ondansetron HCl [Zofran] 4 mg PO Q6H PRN #10 tab 08/12/19 Allergies Allergy/AdvReac Type Severity Reaction Status Date / Time Sulfa (Sulfonamide Allergy Unknown Verified 05/03/19 07:55 Antibiotics) [SULFA (SULFONAMIDE ANTIBIOTICS)] Review of Systems Review of Systems Narrative: Review of systems are all negative except for those mentioned in the history of present illness. Patient History Medical History HTN (hypertension) (Acute) Social History household members: spouse Smoking Status: Former smoker Smoking Status: Former smoker alcohol intake frequency: a few times a week Substance Use Type: does not use Exam Narrative Exam Narrative: PHYSICAL EXAM: CONSTITUTIONAL: Awake, Alert, Oriented, Coherent, Cooperative in NAD. Does not appear toxic or ill. He does appear pale HEAD: AT/NC EENT: PERRL, FROM of eyes, no discharge,. Oral mucosa is moist and pale,, posterior pharynx is without erythema or exudate. NECK: Supple, no obvious JVD, Trachea is midline without stridor, no palpable LN or masses. SPINE: No gross deformity, no palpable tenderness of the cervical, thoracic, lumbar or sacral spine. No CVA tenderness. THORAX: No deformity, retractions, chest wall tenderness, subcutaneous air or crepitice. LUNGS: Clear with symmetrical breath sounds without respiratory distress HEART: Normal heart tones, regular rhythm and rate without murmur. ABDOMEN: Soft, mildly distended and tympanitic with exquisite tenderness to palpation in the epigastrium and medial right upper quadrant. There is diffuse guarding in this area. No rebound no rigidity. EXTREMITIES: No edema, cyanosis, deformity or tenderness. SKIN: No rash, bruising, petechiae or purpura. NEURO: Awake, alert, oriented, conversive, cranial nerves II-XII are symmetrical and normal, moves all 4 extremities and is ambulatory Initial Vital Signs Initial Vital Signs: Vital Signs Temperature 97.8 F 08/12/19 14:19 Pulse Rate 80 08/12/19 14:19 Respiratory Rate 16 08/12/19 14:19 Blood Pressure 135/74 08/12/19 14:19 Pulse Oximetry 98 08/12/19 14:19 Course Course Course Narrative: [address] scan has been completed. However, the report remains pending. [address] scan reveals gallbladder wall without thickening. Biliary system is nondilated. Pancreas is normal. Spleen is normal in size and enhancement. Kidneys demonstrate normal size and enhancement without hydronephrosis. Peritoneum and bowel: Within the proximal stomach there is hyperdense material seen most likely related to dense food which is layering dependently. There is no nacho lead dilated loops of small bowel seen. Liquid stool is seen within the colon. No free air or significant free fluid can be seen. Incidental note is made of normal appearing appendix. There is no mesenteric or or significant retroperitoneal adenopathy. His aorta and inferior vena cava appear to be normal in size the patient has a mild periumbilical hernia with containing fat and bilateral inguinal fat containing hernias Clinical impression: The findings of the bowel or most consistent with enteritis and colitis with liquid stool noted within the colon. Correlate clinically with diarrhea. With the layering material within the proximal stomach upper endoscopy is recommended. The patient's white blood count is 9000. His liver functions are within normal limits as well as his lipase. 1910 the patient's pain and discomfort has completely resolved. He has had 2 liquid diarrhea bowel movements consistent with the enteritis colitis. The patient agrees that he would like to go home and feels much better. On re- examination of his abdomen he is not exquisitely tender in the epigastrium and right upper quadrant. He has mild tenderness in this area at this time. He would like to be treated as though he has the enteritis colitis as discussed and follow up with his primary care physician and he will return if the pain recurs or comes back he will follow-up with his family doctor for a possible ultrasound of the gallbladder as an outpatient if the pain recurs Orders Ordered: Discontinued Medications Ciprofloxacin (Cipro) 500 mg PO NOW ONE Stop: 08/12/19 19:17 Last Admin: 08/12/19 19:29 Dose: 500 mg Documented by: DOROTHEA Al Hydrox/Mg Hydrox/Simethicone 40 ml/ Lidocaine HCl 15 ml 0 ml PO NOW ONE Stop: 08/12/19 19:06 Last Admin: 08/12/19 19:31 Dose: 55 ml Documented by: DOROTHEA Sodium Chloride (Normal Saline 0.9%) 1,000 mls @ 1,000 mls/hr IV BOLUS ONE Stop: 08/12/19 17:02 Last Infusion: 08/12/19 18:58 Dose: 0 mls/hr Documented by: Admin: 08/12/19 16:38 Dose: 1,000 mls/hr Documented by: DOROTHEA Metronidazole (Metronidazole) 500 mg PO NOW ONE Stop: 08/12/19 19:17 Last Admin: 08/12/19 19:29 Dose: 500 mg Documented by: DOROTHEA Morphine Sulfate (Morphine) 4 mg IV NOW ONE Stop: 08/12/19 16:01 Last Admin: 08/12/19 16:38 Dose: 4 mg Documented by: DOROTHEA Ondansetron HCl (Zofran) 4 mg IV NOW ONE Stop: 08/12/19 16:01 Last Admin: 08/12/19 16:37 Dose: 4 mg Documented by: DOROTHEA Vital Signs Vital signs: Vital Signs - 8 hr 08/12/19 14:19 08/12/19 17:33 08/12/19 18:45 Temperature 97.8 F Pulse Rate 80 65 63 Respiratory Rate 16 16 12 Blood Pressure 135/74 Blood Pressure [Left Arm] 137/84 135/74 Pulse Oximetry 98 99 95 MDM - Abdominal Pain Medical Records Attestation: I reviewed the patient's medical records. Lab Data Attestation: I reviewed the patient's lab results. Result diagrams: 08/12/19 16:07 08/12/19 16:07 Labs: Lab Results 08/12/19 08/12/19 08/12/19 Range/Units 16:07 16:07 16:07 WBC 9.0 (4.5-11.0) X10^3/uL RBC 4.70 (4.5-5.9) X10^6/uL Hgb 12.3 L (13.5-17.5) g/dL Hct 37.5 L (41-53) % MCV 79.7 L (80-100) fL MCH 26.0 (26-34) PG MCHC 32.7 (30-36) % RDW 18.4 H (11.6-14.8) % Plt Count 415 H (150-400) X10^3/uL Neut % (Auto) 73.7 (50-75) % Lymph % (Auto) 15.1 L (25-40) % [place] % (Auto) 9.9 (3-14) % Eos % (Auto) 0.6 L (2-4) % Baso % (Auto) 0.7 (0-2) % Neut # (Auto) 6600 (5179-8267) /uL Lymph # (Auto) 1400 (5731-2208) /uL [place] # (Auto) 900 (0-900) /uL Eos # (Auto) 100 (0-450) /uL Baso # (Auto) 100 (0-100) /uL PT 11.5 (10.1-12.7) SECONDS INR 1.0 (0.9-1.3) APTT 29 D (26.4-36.2) SECONDS Sodium 135 L (137-145) mmol/L Potassium 4.6 (3.4-5.1) mmol/L Chloride 100 (98-107) mmol/L Carbon Dioxide 27 (22-32) mmol/L BUN 19 (9-20) mg/dL Creatinine 1.07 (0.66-1.25) mg/dL Estimated GFR > 60.0 (>60) mL/min BUN/Creatinine Ratio 17.8 (6-22) Glucose 140 H (80-110) mg/dL Calcium 9.8 (8.4-10.2) mg/dL Total Bilirubin 0.5 (0.2-1.3) mg/dL AST 25 (17-59) IU/L ALT 16 (<50) IU/L Alkaline Phosphatase 61 (38-126) U/L Total Protein 7.9 (6.3-8.2) g/dL Albumin 4.6 (3.5-5.0) g/dL Globulin 3.3 (1.7-4.1) g/dL Albumin/Globulin Ratio 1.4 (1.0-2.8) Lipase 39 (23-300) U/L Urine Color Urine Appearance Urine pH (4.5-8.0) Ur Specific [place] (1.000-1.035) Urine Protein (Negative) Urine Glucose (UA) (Negative) g/dL Urine Ketones (NEGATIVE) Urine Occult Blood (Negative) Urine Nitrate (Negative) Urine Bilirubin (NEGATIVE) Urine Urobilinogen (0.2) E.U./dL Ur Leukocyte Esterase (NEGATIVE) Urine RBC (0-5/HPF) Urine WBC (0-5/HPF) Ur Squamous Epith Cells (0-5/HPF) Amorphous Sediment Urine Bacteria (None) Ur Culture Indicated? 08/12/19 Range/Units 17:20 WBC (4.5-11.0) X10^3/uL RBC (4.5-5.9) X10^6/uL Hgb (13.5-17.5) g/dL Hct (41-53) % MCV (80-100) fL MCH (26-34) PG MCHC (30-36) % RDW (11.6-14.8) % Plt Count (150-400) X10^3/uL Neut % (Auto) (50-75) % Lymph % (Auto) (25-40) % [place] % (Auto) (3-14) % Eos % (Auto) (2-4) % Baso % (Auto) (0-2) % Neut # (Auto) (7586-0285) /uL Lymph # (Auto) (1979-6383) /uL [place] # (Auto) (0-900) /uL Eos # (Auto) (0-450) /uL Baso # (Auto) (0-100) /uL PT (10.1-12.7) SECONDS INR (0.9-1.3) APTT (26.4-36.2) SECONDS Sodium (137-145) mmol/L Potassium (3.4-5.1) mmol/L Chloride (98-107) mmol/L Carbon Dioxide (22-32) mmol/L BUN (9-20) mg/dL Creatinine (0.66-1.25) mg/dL Estimated GFR (>60) mL/min BUN/Creatinine Ratio (6-22) Glucose (80-110) mg/dL Calcium (8.4-10.2) mg/dL Total Bilirubin (0.2-1.3) mg/dL AST (17-59) IU/L ALT (<50) IU/L Alkaline Phosphatase (38-126) U/L Total Protein (6.3-8.2) g/dL Albumin (3.5-5.0) g/dL Globulin (1.7-4.1) g/dL Albumin/Globulin Ratio (1.0-2.8) Lipase (23-300) U/L Urine Color Yellow Urine Appearance Clear Urine pH 7.0 (4.5-8.0) Ur Specific [place] 1.010 (1.000-1.035) Urine Protein Negative (Negative) Urine Glucose (UA) Negative (Negative) g/dL Urine Ketones Negative (NEGATIVE) Urine Occult Blood Negative (Negative) Urine Nitrate Negative (Negative) Urine Bilirubin Negative (NEGATIVE) Urine Urobilinogen 0.2 (0.2) E.U./dL Ur Leukocyte Esterase Trace H (NEGATIVE) Urine RBC None seen (0-5/HPF) Urine WBC 5-10/hpf H (0-5/HPF) Ur Squamous Epith Cells 0-1 /hpf (0-5/HPF) Amorphous Sediment 1+ Urine Bacteria Few (2-10) H (None) Ur Culture Indicated? Specimen cultured Point of care testing: Urine Dip Bedside Urine Glucose Negative Bedside Urine Bilirubin - Negative Bedside Urine Ketone - Negative Urine Specific [place] 1.010 Bedside Urine Protein +/- 15 Bedside Urine Urobilinogen - Negative Bedside Urine Nitrite - Negative Bedside Urine Leukocytes +/- 15 Esterase ECG Data Attestation: I personally reviewed and interpreted this ECG as follows: Interpretation: The patient's EKG obtained on August 11 at 16:0 12:24 a.m. reveals that the patient has a normal sinus rhythm with a ventricular rate of 81. Intervals appear to be normal. [place] is left axis deviation T-wave in lead III appears to be biphasic while the T-wave in lead V1 is inverted. There are no other acute ST or T-wave changes to suggest an injury pattern. Discharge Plan Departure Patient Disposition: Home Clinical Impression: Abdominal pain, acute, epigastric, Right upper quadrant abdominal pain, E nteritis Diarrhea Qualifiers: Diarrhea type: unspecified type Qualified Code(s): R19.7 - Diarrhea, unspecified Discharge Date/Time: 08/12/19 19:57 Instructions: Diarrhea (Alternative Therapy), DI for Colitis Activity Restrictions/Additional Instructions: 1. Drink 2-3 L of fluid per day to keep herself hydrated. 2. Follow-up with your primary care physician in 48-72 hours to be re-evaluated. If you develop worsening right upper quadrant abdominal pain nausea or vomiting you will need to have an ultrasound of your gallbladder to rule out gallstones. 3. Take Zofran 4 mg every 6 hours as needed for nausea and vomiting. 4. Take Bentyl 20 mg tablets 3 times a day as needed for abdominal pain and cramps. 5. Take the Cipro 500 mg twice a day and Flagyl 500 mg twice a day for the next 7 days. 6. If you develop worsening abdominal pain, fever, persistent Prescriptions: New dicyclomine 20 mg tablet 20 mg PO TID Qty: 15 RF: 0 ondansetron HCl [Zofran] 4 mg tablet 4 mg PO Q6H PRN (Reason: nausea and vomiting) Qty: 10 RF: 0 ciprofloxacin HCl [Cipro] 500 mg tablet 500 mg PO BID Qty: 14 RF: 0 metronidazole [Flagyl] 500 mg tablet 500 mg PO BID Qty: 14 RF: 0 No Action aspirin 81 MG tablet,delayed release (DR/EC) 81 mg PO QDAY Qty: 0 RF: 0 MULTIVITAMIN (Multivitamin -) 0 PO USEASDIRECTD Qty: 0 RF: 0 Bystolic 20 MG tablet 5 mg PO BID Qty: 0 RF: 0 amlodipine-olmesartan [Jace] 5-20 mg Tablet 5 tab PO QDAY Qty: 0 RF: 0 Dexilant 30 mg Capsule,Biphase Delayed Releas 60 mg PO DAILY Qty: 0 RF: 0 meprobamate 400 mg Tablet 400 mg PO TID PRN (Reason: Headache) RF: 0 tadalafil 5 mg tablet 5 mg PO DAILY RF: 0 Referrals: Harsha Parham MD [Primary Care Provider] -
[2019-08-12 16:28] LABS: Add Manual Diff / Slide Review NO; Basophils Absolute Auto 100 /uL (0-100); Basophils Percent Auto 0.7 % (0-2); Eosinophils Absolute Auto 100 /uL (0-450); Eosinophils Percent Auto 0.6 % (2-4); Hematocrit 37.5 % (41-53); Hemoglobin 12.3 g/dL (13.5-17.5); Lymphocytes Absolute Auto 1400 /uL (1100-4500); Lymphocytes Percent Auto 15.1 % (25-40); Mean Corpuscular HGB Conc 32.7 % (30-36); Mean Corpuscular Volume 79.7 fL (80-100); Monocytes Absolute Auto 900 /uL (0-900); Monocytes Percent Auto 9.9 % (3-14); Neutrophils Absolute Auto 6600 /uL (1500-7000); Neutrophils Percent Auto 73.7 % (50-75); Platelet Count 415 X10^3/uL (150-400); Red Cell Distribution Width 18.4 % (11.6-14.8)
[2019-08-12] MEDS: ONDANSETRON 4 MG/2 ML INJ IV (16:37)
[2019-08-12] MEDS: SODIUM CHLORIDE 0.9% 1,000 ML 1000 ML IV (16:38)
[2019-08-12] MEDS: MORPHINE 4 MG/ML INJ IV (16:38)
[2019-08-12 16:39] LABS: Prothrombin Time 11.5 SECONDS (10.1-12.7)
[2019-08-12 16:42] LABS: PTT Partial Thromboplastin Tim 29 SECONDS (26.4-36.2)
[2019-08-12 16:43] LABS: Alanine Aminotransferase 16 IU/L (<50); Albumin 4.6 g/dL (3.5-5.0); Albumin Globulin Ratio 1.4 (1.0-2.8); Alkaline Phosphatase 61 U/L (38-126); Aspartate Aminotransferase 25 IU/L (17-59); BUN Creatinine Ratio 17.8 (6-22); Bilirubin Total 0.5 mg/dL (0.2-1.3); Blood Urea Nitrogen 19 mg/dL (9-20); Calcium 9.8 mg/dL (8.4-10.2); Carbon Dioxide 27 mmol/L (22-32); Chloride 100 mmol/L (98-107); Estimated Glomerular Filt Rate > 60.0 mL/min (>60); Globulin 3.3 g/dL (1.7-4.1); Glucose 140 mg/dL (80-110); HEMOLYSIS < 15 (0-50); Lipase 39 U/L (23-300); Potassium 4.6 mmol/L (3.4-5.1); Sodium 135 mmol/L (137-145); Total Protein 7.9 g/dL (6.3-8.2)
[2019-08-12 17:33] VITALS: BP 137/84; PULSE 65; RESP 16; O2SAT 99
[2019-08-12 18:45] VITALS: BP 135/74; PULSE 63; RESP 12; O2SAT 95
[2019-08-12 19:03] LABS: RBC Urine None Seen (0-5/HPF)
[2019-08-12 19:07] LABS: Appearance Urine UA CLEAR; Bilirubin Urine UA NEGATIVE (NEGATIVE); Color Urine UA YELLOW; Glucose Urine UA NEGATIVE (Negative); Ketones Urine UA NEGATIVE (NEGATIVE); Leukocyte Esterase Urine UA TRACE (NEGATIVE); Nitrite Urine UA NEGATIVE (Negative); Occult Blood Urine UA NEGATIVE (Negative); Protein Urine UA NEGATIVE (Negative); Urobilinogen Urine UA 0.2 E.U./dL (0.2)
[2019-08-12 19:17] LABS: Amorphous Sediment Urine 1+; Bacteria Urine Few (2-10); Culture Indicated Urine Specimen Cultured; Squamous Epithelial Cell Urine 0-1 /HPF (0-5/HPF); WBC Urine 5-10/HPF (0-5/HPF)
[2019-08-12] MEDS: metroNIDAZOLE 250 MG TABLET 500 MG PO (19:29)
[2019-08-12] MEDS: CIPROFLOXACIN 500 MG TABLET PO (19:29)
[2019-08-12] MEDS: MAG HYDROX/ALUMINUM/SIMETH SUS 40 ML, LIDOCAINE VISCOUS 2% 15 ML PO (19:31)
[2019-08-12 19:46] VITALS: BP 135/74; PULSE 61; RESP 18; O2SAT 99
== END 2019-08-12 19:57 | disposition home or self-care (01) ==
PROVIDERS: Emergency Provider Emergency Medicine; Family Provider Family Medicine; PCP Family Medicine
DX: R10.13 Epigastric pain (principal); R10.11 Right upper quadrant pain; K52.9 Noninfective gastroenteritis and colitis, unspecified; I10 Essential (primary) hypertension
CPT/HCPCS: 36415; 74177; 80053; 81001; 81003; 83690; 85025; 85610; 85730; 87086; 93005; 96361; 96374; 96375; 99284; J2270; J2405; Q9967

== ENCOUNTER → 2019-08-14 08:38 | Outpatient (CLI) | payer MEDICARE, OTHER, SELFPAY ==
--- NOTE | 2019-08-14 | DI.US.S_ITS ---
PROCEDURE: US ABDOMEN COMPLETE INDICATIONS: RIGHT UPPER QUADRANT PAIN TECHNIQUE: Real-time scanning was performed of the abdominal and retroperitoneal organs, with image documentation. COMPARISON: [facility], CT, CT ABDOMEN PELVIS W CON, 08/12/2019, 16:46. [facility], US, ABDOMEN COMPLETE, 03/28/2017, 8:57. FINDINGS: Liver: Liver is normal in size. There is a 9 x 9 x 8 mm and 6 x 7 by 8mm hypoechoic foci within the left lobe. There are unchanged. Gallbladder: Gallbladder is unremarkable. Wall thickness is within normal limits measuring less than 1 mm. Biliary ducts: Intrahepatic bile ducts are non-dilated. Extrahepatic bile duct caliber measures 6 mm. Normal is 6-7 mm or less in diameter, or 10 mm or less post-cholecystectomy. Pancreas: Visualized portions of the pancreas are sonographically normal. Spleen: Spleen is normal in size and homogeneous in echotexture. Kidneys: Kidneys are normal in size and echotexture. Right kidney measures 10.1 cm long; left kidney measures 10.4 cm long. No hydronephrosis or nephrolithiasis. No solid masses. Aorta: Visualized aorta is normal in caliber at less than 3 cm. Iliacs: Proximal common iliac arteries are normal in caliber at less than 2.5 cm. IVC: Intrahepatic inferior vena cava is patent. Miscellaneous: No free abdominal fluid. IMPRESSION: Stable hepatic cysts. Otherwise, unremarkable exam. Dictated by: Dian Patel M.D. on 08/15/2019 at 16:27 Approved by: Dian Patel M.D. on 08/15/2019 at 16:29
== END ==
PROVIDERS: Family Provider Family Medicine; PCP Family Medicine; Referring Provider Family Medicine; Visit Provider Family Medicine
DX: R10.11 Right upper quadrant pain (principal); K76.89 Other specified diseases of liver
CPT/HCPCS: 76700

== ENCOUNTER → 2020-12-10 10:16 | Outpatient (CLI) | payer MEDICARE, OTHER, SELFPAY ==
--- NOTE | 2020-12-10 | DI.CT.S_ITS ---
PROCEDURE: CT ABDOMEN W CON INDICATIONS: EPIGASTRIC PAIN TECHNIQUE: After the administration of intravenous contrast and oral contrast, axial sections acquired from the diaphragm to the iliac crests. Coronal and sagittal reformats were performed. For radiation dose reduction, the following was used: automated exposure control, adjustment of mA and/or kV according to patient size. COMPARISON: [facility], CT, CT ABDOMEN PELVIS W CON, 08/12/2019, 16:46. [facility], CT, ABDOMEN WITH CONTRAST, 03/23/2013, 9:13. FINDINGS: Image quality: Excellent. Lung bases: Right lower lobe pulmonary nodule measuring 0.4 cm, (3/80), not significantly changed compared to 2019. Right juxta diaphragmatic pulmonary nodule measuring 0.5 cm, (3/18), unchanged since 2012. Left juxta diaphragmatic pulmonary nodule measuring 0.3 cm, not significantly changed compared to 2019. Heart: No significant findings. Liver: Probable benign cyst in the right dome of the liver measuring 2.3 cm, (2/19), remotely 1.4 cm. Less likely a hemangioma. Several additional scattered hypodense foci which have the appearance of benign cysts. Gallbladder: Decompressed. No calcified gallstones seen. Biliary ducts: Unremarkable. Pancreas: Unremarkable. Spleen: Unremarkable. Adrenal Glands: Unremarkable. Kidneys and Ureters: Small simple appearing cyst in the left kidney is not significantly changed. No hydronephrosis. Stomach and Bowel: Stomach is not significantly distended. There is oral contrast in the stomach. Small foci of gas in the region of the gastric wall are similar to 2013. No small bowel obstruction. Normal appendix. Peritoneum: No abnormal intraperitoneal fluid. No free air. Ventral Wall: Small fat containing periumbilical hernia. Abdominal Nodes: No retroperitoneal or mesenteric adenopathy by size criteria. Vessels: Aorta and inferior vena cava are normal in size. No portal venous gas. Bones: Mild anterolisthesis of L4 on L5. No compression fracture. IMPRESSION: No acute abnormality is identified. No free fluid. Dictated by: Cong Michael M.D. on 12/10/2020 at 12:19 Approved by: Cong Michael M.D. on 12/10/2020 at 12:32
[2020-12-10 10:47] LABS: BUN Creatinine Ratio 15.4 (6-22); Blood Urea Nitrogen 18 mg/dL (9-20); Calcium 9.7 mg/dL (8.4-10.2); Carbon Dioxide 28 mmol/L (22-32); Chloride 97 mmol/L (98-107); Estimated Glomerular Filt Rate > 60.0 mL/min (>60); Glucose 100 mg/dL (80-110); HEMOLYSIS < 15 (0-50); Potassium 4.7 mmol/L (3.4-5.1); Sodium 131 mmol/L (137-145)
== END ==
PROVIDERS: Family Provider Family Medicine; PCP Family Medicine; Referring Provider Family Medicine; Visit Provider Family Medicine
DX: R10.13 Epigastric pain (principal); Z01.812 Encounter for preprocedural laboratory examination; R91.8 Other nonspecific abnormal finding of lung field; M43.16 Spondylolisthesis, lumbar region; I10 Essential (primary) hypertension; Z79.899 Other long term (current) drug therapy
CPT/HCPCS: 36415; 74160; 80048

== ENCOUNTER → 2021-06-05 09:42 | Outpatient (CLI) | payer MEDICARE, OTHER, SELFPAY ==
--- NOTE | 2021-06-05 09:46 | DI.RAD.S_ITS ---
PROCEDURE: XR FOOT RT MIN 3V INDICATIONS: POSSIBLE WIRE IN FOOT TECHNIQUE: 3 views of the foot were acquired. COMPARISON: None. FINDINGS: Bones: No fractures or dislocations. No suspicious bony lesions. Mild degenerative change. Soft tissues: No tibiotalar joint effusion. Achilles tendon appears normal. No radiopaque foreign body. IMPRESSION: No radiopaque foreign body. Dictated by: Cong Michael M.D. on 06/05/2021 at 12:08 Approved by: Cong Michael M.D. on 06/05/2021 at 12:10
== END ==
PROVIDERS: Family Provider Family Medicine; PCP Family Medicine; Referring Provider Family Medicine; Visit Provider Family Medicine
DX: S90.851A Superficial foreign body, right foot, initial encounter (principal)
CPT/HCPCS: 73630

== ENCOUNTER → 2024-01-03 17:28 | Outpatient (CLI) | payer MEDICARE, OTHER, SELFPAY ==
--- NOTE | 2024-01-03 17:31 | DI.RAD.S_ITS ---
PROCEDURE: XR FOOT LT MIN 3V INDICATIONS: FOOT PAIN TECHNIQUE: 3 views of the foot were acquired. COMPARISON: [facility], CR, XR FOOT RT MIN 3V, 06/05/2021, 10:03. FINDINGS: Bones: Minimally displaced oblique fracture involving 4th proximal phalangeal neck is seen. No other fracture or dislocation. No suspicious bony lesions. Soft tissues: No tibiotalar joint effusion. Achilles tendon appears normal. IMPRESSION: Minimally displaced oblique fracture through 4th proximal phalangeal neck. No other fracture or dislocation. Dictated by: Jose Mendenhall M.D. on 01/04/2024 at 8:59 Approved by: Jose Mendenhall M.D. on 01/04/2024 at 9:05
== END ==
LOC: RAD 17:30
PROVIDERS: Family Provider Family Medicine; PCP Family Medicine; Referring Provider Family Medicine; Visit Provider Family Medicine
DX: S92.515A Nondisplaced fracture of proximal phalanx of left lesser toe(s), initial encounter for closed fracture (principal); M79.672 Pain in left foot
CPT/HCPCS: 73630

== ENCOUNTER → 2024-04-19 09:39 | Outpatient (CLI) | payer MEDICARE, OTHER, SELFPAY ==
--- NOTE | 2024-04-19 09:41 | DI.CT.S_ITS ---
PROCEDURE: CT HEAD/BRAIN WO CON INDICATIONS: HEADACHE/CERVICALGIA TECHNIQUE: Noncontrast 4.5 mm thick angled axial sections acquired from the foramen magnum to the vertex, with coronal and sagittal reformats. For radiation dose reduction, the following was used: automated exposure control, adjustment of mA and/or kV according to patient size. COMPARISON: None. FINDINGS: Image quality: Diagnostic. CSF spaces: Basal cisterns are patent. No extra-axial fluid collections. The ventricles are symmetric in size and shape. Brain: No intracranial bleeds or masses. There is cerebral volume loss for age, with resultant ventricular and sulcal prominence. There are periventricular and deep white matter chronic small vessel ischemic changes. There is intracranial internal carotid artery atherosclerosis. Skull and face: Calvarium and visualized facial bones appear intact, without suspicious lesions. Sinuses: Visualized sinuses and mastoids are clear. IMPRESSION: No cause for patient's symptoms is identified. No acute intracranial pathology. Dictated by: Reese Maria M.D. on 04/19/2024 at 11:46 Approved by: Reese Maria M.D. on 04/19/2024 at 11:47
--- NOTE | 2024-04-19 09:42 | DI.CT.S_ITS ---
PROCEDURE: CT CERVICAL SPINE WO CON INDICATIONS: HEADACHE/CERVICALGIA TECHNIQUE: Noncontrast 3 mm thick sections acquired from the skull base to the T4 level. Sagittal and coronal reformats were then constructed. For radiation dose reduction, the following was used: automated exposure control, adjustment of mA and/or kV according to patient size. COMPARISON: None. FINDINGS: Image quality: Excellent. Bones: No fractures or dislocations. Straightening and mild reversal the normal cervical lordosis. Mild degenerative anterolisthesis of C4 on C5. Decreased osseous mineralization. Moderate to severe multilevel degenerative changes of the cervical spine, most pronounced at C5-C6 and C6-C7. Multilevel mild to moderate central canal stenosis. No high-grade central canal stenosis. Multilevel high-grade neural foraminal stenosis, for example severe on the left at C3-C4 and bilaterally at C4-C5. At least moderate bilateral neural foraminal stenosis at C5-C6. Visualized superior ribs are intact. Soft tissues: Prevertebral soft tissues are normal in thickness. No paravertebral hematomas. No apical pneumothoraces. Peripheral reticulations at the lung apices, likely representing fibrotic changes. Atherosclerotic vascular calcifications. IMPRESSION: No displaced fracture or traumatic subluxation. Moderate to severe multilevel degenerative changes of the cervical spine as described above. Peripheral reticulations at the lung apices, likely representing fibrotic changes. Dictated by: Reese Maria M.D. on 04/19/2024 at 11:47 Approved by: Reese Maria M.D. on 04/19/2024 at 11:54
== END ==
PROVIDERS: Family Provider Family Medicine; PCP Family Medicine; Referring Provider Family Medicine; Visit Provider Family Medicine
DX: M43.12 Spondylolisthesis, cervical region (principal); R51.9 Headache, unspecified; M54.2 Cervicalgia; I65.29 Occlusion and stenosis of unspecified carotid artery; M47.812 Spondylosis without myelopathy or radiculopathy, cervical region; M48.02 Spinal stenosis, cervical region
CPT/HCPCS: 70450; 72125

== ENCOUNTER → 2024-07-04 11:58 | Outpatient (CLI) | payer MEDICARE, OTHER, SELFPAY ==
[2024-07-06 07:09] LABS: PSA Free % 28.3 % (.); PSA, Total 4.6 ng/mL (0.0-4.0)
== END ==
LOC: LAB 12:00
PROVIDERS: Family Provider Family Medicine; PCP Family Medicine; Referring Provider Family Medicine; Visit Provider Family Medicine
DX: R73.9 Hyperglycemia, unspecified (principal); Z12.5 Encounter for screening for malignant neoplasm of prostate
CPT/HCPCS: 36415; 83036; 84153; 84154

== ENCOUNTER → 2024-09-11 10:30 | Outpatient (CLI) | payer MEDICARE, OTHER, SELFPAY ==
[2024-09-11 10:57] LABS: Add Manual Diff / Slide Review NO; Basophils Absolute Auto 100 /uL (0-100); Eosinophils Absolute Auto 300 /uL (0-450); Eosinophils Percent Auto 4.8 % (2-4); Hematocrit 35.7 % (41-53); Hemoglobin 11.8 g/dL (13.5-17.5); Lymphocytes Absolute Auto 1800 /uL (1100-4500); Lymphocytes Percent Auto 30.2 % (25-40); Mean Corpuscular Hemoglobin 26.1 PG (26-34); Monocytes Absolute Auto 700 /uL (0-900); Monocytes Percent Auto 12.1 % (3-14); Neutrophils Absolute Auto 3100 /uL (1500-7000); Neutrophils Percent Auto 50.9 % (50-75); Platelet Count 328 X10^3/uL (150-400); Red Blood Cell Count 4.51 X10^6/uL (4.5-5.9); Red Cell Distribution Width 16.3 % (11.6-14.8); White Blood Cell Count 6.1 X10^3/uL (4.5-11.0)
[2024-09-11 11:32] LABS: Alanine Aminotransferase 24 IU/L (<50); Albumin 4.5 g/dL (3.5-5.0); Albumin Globulin Ratio 1.7 (1.0-2.8); Alkaline Phosphatase 48 U/L (38-126); Aspartate Aminotransferase 29 IU/L (17-59); BUN Creatinine Ratio 16.5 (6-22); Bilirubin Total 0.7 mg/dL (0.2-1.3); Blood Urea Nitrogen 22 mg/dL (9-20); Calcium 9.8 mg/dL (8.4-10.2); Carbon Dioxide 28 mmol/L (22-32); Chloride 102 mmol/L (98-107); Cholesterol 232 mg/dL (140-199); Estimated Glomerular Filt Rate 53 mL/min (>60); Globulin 2.7 g/dL (1.7-4.1); Glucose 104 mg/dL (80-110); HDL Cholesterol 34 mg/dL (40-60); HEMOLYSIS < 15 (0-50); LDL Cholesterol Calculated 169 mg/dL (<100); Potassium 5.2 mmol/L (3.4-5.1); Sodium 137 mmol/L (137-145); Total Protein 7.2 g/dL (6.3-8.2); Triglycerides 143 mg/dL (35-150)
[2024-09-11 11:42] LABS: Vitamin D 25 Hydroxy (D3) 42.2 ng/mL (30.0-100.0)
[2024-09-11 11:59] LABS: Prostate Specific Antigen 5.48 ng/mL (0.10-4.00)
== END ==
PROVIDERS: Family Provider Family Medicine; PCP Family Medicine; Referring Provider Family Medicine; Visit Provider Family Medicine
DX: E55.9 Vitamin D deficiency, unspecified (principal); N40.0 Benign prostatic hyperplasia without lower urinary tract symptoms; Z13.228 Encounter for screening for other metabolic disorders
CPT/HCPCS: 36415; 80053; 80061; 82306; 84153; 84154; 85025